=== PATIENT | male | born 1995 | race Caucasian/White ===

== ENCOUNTER 2022-05-14 09:13 | Emergency (ER) | payer OTHER ==
[~2022-05-14] VITALS: Ht 172.7 cm; Wt 82.0 kg
[2022-05-14] MEDS ORDERED: CYCL10TA21 MT (10:43)
[2022-05-14] MEDS ORDERED: NAPR-1176 MT (10:43)
[2022-05-14] MEDS ORDERED: KETOROLAC 30MG/ML VIAL IM ONE (10:45)
[2022-05-14] MEDS ORDERED: CYCLOBENZAPRINE 10MG TABLET PO ONE (10:45)
[2022-05-14 10:56] VITALS: BP 112/67
== END 2022-05-14 11:21 | disposition home or self-care (01) ==
LOC: ER 09:13
DX: S16.1XXA Strain of muscle, fascia and tendon at neck level, initial encounter (principal); V43.52XA Car driver injured in collision with other type car in traffic accident, initial encounter; Y93.89 Activity, other specified; Y92.488 Other paved roadways as the place of occurrence of the external cause
CPT/HCPCS: 96372; 99283; J1885

== ENCOUNTER 2022-07-19 16:19 | Emergency (ER) | payer OTHER ==
[~2022-07-19] VITALS: Ht 182.9 cm; Wt 76.0 kg
[~2022-07-19 16:19] MED LIST: CYCL10TA21 MT; NAPR-1176 MT
[2022-07-19] MEDS ORDERED: IBUPROFEN 600MG TABLET PO ONE (19:00)
[2022-07-19] MEDS ORDERED: METH-653 MT (20:36)
[2022-07-19] MEDS ORDERED: IBUP-2029 MT (20:36)
[2022-07-19 20:55] VITALS: BP 125/79
== END 2022-07-19 20:56 | disposition home or self-care (01) ==
LOC: ER 16:19
DX: S40.022A Contusion of left upper arm, initial encounter (principal); S39.012A Strain of muscle, fascia and tendon of lower back, initial encounter; X58.XXXA Exposure to other specified factors, initial encounter; Y93.89 Activity, other specified; Y92.89 Other specified places as the place of occurrence of the external cause; Y99.8 Other external cause status; Z98.890 Other specified postprocedural states
CPT/HCPCS: 72100; 73060; 73070; 73090; 73600; 99284

== ENCOUNTER 2025-08-01 09:59 | Emergency (ER) | payer OTHER ==
[~2025-08-01] VITALS: Ht 175.3 cm; Wt 84.0 kg
[~2025-08-01 09:59] MED LIST changes: +IBUP-1455 MT; +METH-653 MT
[2025-08-01 10:06] VITALS: O2SAT 99
[2025-08-01] MEDS: KETOROLAC 15MG/ML VIAL IM ONE (12:36)
[2025-08-01] MEDS: ACETAMINOPHEN 500MG TABLET PO ONE (12:37)
[2025-08-01] MEDS: LIDOCAINE 5% PATCH TOP SCH (12:41)
[2025-08-01 14:02] VITALS: BP 119/75; PULSE 60; RESP 16; TEMP 37; O2SAT 100
[2025-08-01] MEDS ORDERED: LIDO700A30 TP (14:20)
[2025-08-01] MEDS ORDERED: IBUP-2028 MT (14:20)
== END 2025-08-01 14:28 | disposition home or self-care (01) ==
LOC: ER 10:08
DX: S39.012A Strain of muscle, fascia and tendon of lower back, initial encounter (principal); Z79.899 Other long term (current) drug therapy; V59.40XA Driver of pick-up truck or van injured in collision with unspecified motor vehicles in traffic accident, initial encounter; Y93.89 Activity, other specified; Y92.89 Other specified places as the place of occurrence of the external cause; Y99.8 Other external cause status
CPT/HCPCS: 96372; 99283; J1885; Z7610